=== PATIENT | male | born 1980 ===

== ENCOUNTER 2016-09-28 20:04 | Emergency (ER) | payer OTHER ==
[2016-09-28 20:22] VITALS: BP 142/80; PULSE 88; RESP 20; TEMP 98.3; O2SAT 100
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
== END 2016-09-28 21:22 | disposition home or self-care (01) ==
LOC: C.ER 20:04
DX: S13.4XXA Sprain of ligaments of cervical spine, initial encounter (principal); S60.211A Contusion of right wrist, initial encounter; V43.62XA Car passenger injured in collision with other type car in traffic accident, initial encounter; Y92.410 Unspecified street and highway as the place of occurrence of the external cause